=== PATIENT | female | born 1950 | race Caucasian/White ===

== ENCOUNTER 2016-08-23 07:04 | Day surgery (SDC) | payer MEDICARE, BC ==
[~2016-08-23 07:04] MED LIST: ACETAMINOPHEN 500 MG TABLET PO PRN; HYDROmorphone HCL 2 MG/ML VIAL IV PRN; MAG HYDROX/ALUMINUM HYD/SIMETH 30 ML UDC PO PRN; MAGNESIUM HYDROXIDE 30 ML UDC PO PRN; ONDANSETRON HCL/PF 2 MG/ML VIAL IV PRN; PROMETHAZINE HCL 25 MG in DEXTROSE 5 % IN WATER 50 ML IV PRN; RINGERS SOLUTION,LACTATED 1,000 ML IV PRN; ZOLPIDEM TARTRATE 5 MG TABLET PO PRN; ceFAZolin SODIUM 1 GM VIAL IV PRN; diphenhydrAMINE HCL 50 MG/ML VIAL IV PRN; oxyCODONE HCL/ACETAMINOPHEN 1 TAB TABLET PO PRN
[2016-08-23] MEDS ORDERED: RINGERS SOLUTION,LACTATED 1,000 ML IV ONE ×2 (07:35→09:30)
[2016-08-23] MEDS ORDERED: BUPIVACAINE HCL 50 ML VIAL IJ ONE (08:00)
--- NOTE | 2016-08-23 10:43 | OR ---
Operative Report - Dictated Report Narrative: Date: 08/23/2016 Preoperative diagnosis: Right hallux rigidus Postoperative diagnosis: Right hallux rigidus Procedure: Right first metatarsophalangeal arthrodesis Surgeon: Theodore Witt M.D. Salesperson [employer] Needs: Rosalio Bonilla PA-C Anesthesia: MAC with local anesthesia Complications: None Specimens: Bone for disposal. Estimated blood loss: Minimal. Tourniquet time: 90 Minutes at 275 millimeters of mercury. Retained implants: Acumed Acutrak screws 2, Acumed precontoured 3.5 mm locking toe plate with screws Indications: Peg Is a 66-year-old female. This patient was followed in my clinic for period of time with significant complaints of right great toe pain consistent with hallux rigidus. They had failed conservative measures including but not limited to activity modification, shoewear modification, passage of time, medications, and other conservative measures. Patient wished to proceed with surgical treatment. The risks, benefits, and alternatives were discussed in clinic. The risks of , blood clots, bleeding, infection, nerve/tendon blood vessel/ injury, nonunion/malunion, intraoperative fracture, symptomatic implants, persistent pain and need for additional procedures. Patient wished to proceed consent was obtained after answering all questions. Procedure: After marking the correct extremity on the floor, the patient was taken to the operating room. A timeout was performed. IV antibiotics consisting of 1 g of Ancef were administered prior to the procedure. MAC anesthetic was induced by anesthesia. The patient was placed supine on the operative table with all bony prominences well-padded. SCDs and ROSALIO hose were utilized on the nonoperative leg. A well-padded tourniquet was applied to the operative thigh. The operative leg was then prepped and draped in a standard sterile fashion. After exsanguinating the extremity with an Esmarch bandage, the tourniquet was inflated to 275 mmHg. A dorsal incision was made just medial to the EHL tendon extending from the midportion of the metatarsal to the interphalangeal joint. The dorsal cutaneous nerve was identified and retracted laterally. The EHL tendon sheath was incised medially and the EHL tendon was retracted laterally exposing the metatarsophalangeal joint capsule. This was incised longitudinally. Medial and lateral releases were performed and the MTP joint was hyperflexed to expose the articular surfaces of the metatarsal and the proximal phalanx. A partial synovectomy was performed using a rongeur. All prominent osteophytes were then removed using a rongeur. She was noted to have a sizable medial eminence of the metatarsal head. Next we turned our attention to the proximal phalanx. A Jailene wire was placed in the center point of the articular surface in line with the long axis of the proximal phalanx. An appropriately sized convex reamer was then advanced down over the Jailene wire and the articular surface of the proximal phalanx was reamed down to subchondral cancellus bone. The Jailene wire was removed and any remaining collar of cartilage or bone was removed. The bony reamings were saved for bone grafting. We then turned our attention to the metatarsal head. A Jailene wire was placed in the center of the articular surface in line with the longitudinal axis of the metatarsal. The concave reamer corresponding to the convex reamer used and the proximal phalanx was then used to ream the articular surface of the metatarsal head down to subchondral cancellus bone. Any remaining collar of bone or cartilage was removed with a rongeur. The bony reamings were saved for bone grafting. The joint was then held in the appropriate position at about 20 of dorsiflexion and approximately 10 of valgus and down held in place with a Jailene wire. The joint position was confirmed via fluoroscopy as well as by placing the foot on a flat metal surface allowing the plantar aspect of the great toe to just touch the flat plate with mild flexion of the IP joint. Our bony reamings were then packed into the joint to provide bone graft. Next, 2 AccuTwist compression screws were placed across the MTP joint in a crossed fashion. The provisional K wire was removed. The prominent medial eminence was then shaved down using an oscillating saw and a rongeur. We then turned our attention to placing the precontoured arthrodesis plate on the dorsal aspect of the MTP joint. One distal locking screw appropriate length was placed and then a cortical screw was placed proximally in the metatarsal and eccentric position to provide more compression across the joint. The remaining proximal and distal locking holes were filled with screws of the appropriate length. Final position of our implants and screw lengths were confirmed via fluoroscopy and we were happy with the position of our implants and the alignment of the toe. The wound was then copiously irrigated with normal saline. The tourniquet was then let down and hemostasis was obtained using a combination of direct pressure and bipolar cautery. Once hemostasis had been achieved, the wound was closed in a layered fashion. The capsule and extensor tendon sheath were closed over the top of the plate using interrupted 3 -0 Vicryl suture. Skin was then closed with interrupted 4-0 nylon in horizontal mattress fashion. 0.5% Marcaine without epinephrine was then used to anesthetize around the wound in a field block fashion followed by a digital block of the great toe. The wound was then sealed with Dermabond and dressed with Xeroform, 4 x 4's, and soft roll. A well-padded AO style splint was then placed. All sponge, needle, and instrument counts were correct at the end of the case. The patient was awoken from anesthesia without complication and taken to the PACU in stable condition.
[2016-08-23 13:25] VITALS: BP 106/63
[2016-08-23] MEDS ORDERED: SENNOSIDES/DOCUSATE SODIUM 1 TAB TABLET PO SCH (21:00)
== END 2016-08-23 07:05 | disposition home or self-care (01) ==
LOC: AMB 07:04
PROVIDERS: ATTEND Orthopaedic Surgery
PROC: 0SGM04Z Fusion of Right Metatarsal-Phalangeal Joint with Internal Fixation Device, Open Approach (ICD-10-PCS; 2016-08-23)
PROC: 0SGM07Z Fusion of Right Metatarsal-Phalangeal Joint with Autologous Tissue Substitute, Open Approach (ICD-10-PCS; principal; 2016-08-23 08:00)
DX: M20.21 Hallux rigidus, right foot (principal); I10 Essential (primary) hypertension; E03.9 Hypothyroidism, unspecified; K21.9 Gastro-esophageal reflux disease without esophagitis; M06.9 Rheumatoid arthritis, unspecified; Z87.891 Personal history of nicotine dependence; Z68.1 Body mass index [BMI] 19.9 or less, adult
CPT/HCPCS: 28750; L8641